=== PATIENT | male | born 1970 | race Caucasian/White ===

== ENCOUNTER 2017-03-27 13:45 | Emergency (ER) | payer OTHER ==
[~2017-03-27] VITALS: Ht 177.8 cm; Wt 101.2 kg
[2017-03-27] MEDS ORDERED: OMEPRAZOLE20 M2 (13:53)
[2017-03-27] MEDS ORDERED: NAPROSYN500 MG PO (16:08)
[2017-03-27] MEDS ORDERED: HYDROCODONE-AP1 EAC6 PO (16:08)
[2017-03-27] MEDS ORDERED: KEFLEX500 M1 PO (17:01)
== END 2017-03-27 17:07 | disposition home or self-care (01) ==
LOC: ER 13:45
DX: S66.323A Laceration of extensor muscle, fascia and tendon of left middle finger at wrist and hand level, initial encounter (principal); Z88.0 Allergy status to penicillin; W26.8XXA Contact with other sharp object(s), not elsewhere classified, initial encounter; Y93.89 Activity, other specified; Y92.89 Other specified places as the place of occurrence of the external cause; Y99.8 Other external cause status